=== PATIENT | male | born 1990 | race African-American/Black ===

== ENCOUNTER 2019-10-26 16:44 | Emergency (ER) | payer MEDICAID ==
[~2019-10-26] VITALS: Ht 180.3 cm; Wt 118.0 kg
[2019-10-26 18:54] LABS: CLARITY URINE CLEAR (CLEAR); COLOR URINE YELLOW (YELLOW); KETONES URINE TRACE (NEGATIVE); LEUKOCYTE ESTERASE URINE 1+ (NEGATIVE); NITRITE URINE NEGATIVE (NEGATIVE); OCCULT BLOOD URINE NEGATIVE (NEGATIVE); PH URINE 6.5 (4.5-8.0); PROTEIN URINE NEGATIVE (NEGATIVE); SPECIFIC GRAVITY URINE 1.027 (1.005-1.030)
[2019-10-26] MEDS ORDERED: AZITHROMYCIN 500 MG TABLET PO ONE (19:00)
[2019-10-26] MEDS ORDERED: CEFTRIAXONE SODIUM 250 MG/VIAL IM ONE (19:00)
[2019-10-26 19:09] VITALS: BP 118/87
== END 2019-10-26 19:28 | disposition home or self-care (01) ==
LOC: ER 16:44
DX: A64 Unspecified sexually transmitted disease (principal); J45.909 Unspecified asthma, uncomplicated
CPT/HCPCS: 81003; 96372; 99283; J0696; Z7610

== ENCOUNTER 2019-11-04 11:14 | Emergency (ER) | payer MEDICAID ==
[~2019-11-04] VITALS: Ht 182.9 cm; Wt 117.0 kg
[2019-11-04 11:24] VITALS: BP 150/82
[2019-11-04] MEDS ORDERED: AZITHROMYCIN 500 MG TABLET PO ONE (13:00)
[2019-11-04] MEDS ORDERED: CEFTRIAXONE SODIUM 250 MG/VIAL IM ONE (13:00)
[2019-11-04 13:15] LABS: CLARITY URINE CLEAR (CLEAR); COLOR URINE YELLOW (YELLOW); KETONES URINE NEGATIVE (NEGATIVE); LEUKOCYTE ESTERASE URINE NEGATIVE (NEGATIVE); NITRITE URINE NEGATIVE (NEGATIVE); OCCULT BLOOD URINE NEGATIVE (NEGATIVE); PROTEIN URINE NEGATIVE (NEGATIVE); SPECIFIC GRAVITY URINE 1.026 (1.005-1.030); UROBILINOGEN URINE 0.2 E.U./dL (0.2-1.0)
[2019-11-13 07:53] LABS: CHLAMYDIA TRACHOMATIS NAA Positive (Negative); NEISSERIA GONORRHOEAE NAA Negative (Negative)
== END 2019-11-04 13:50 | disposition left against medical advice (07) ==
LOC: ER 11:24
DX: R30.0 Dysuria (principal); R36.9 Urethral discharge, unspecified; R10.2 Pelvic and perineal pain; R30.9 Painful micturition, unspecified; N50.811 Right testicular pain; J45.909 Unspecified asthma, uncomplicated
CPT/HCPCS: 81003; 87491; 87591; 96372; 99283; J0696

== ENCOUNTER 2019-12-13 16:39 | Emergency (ER) | payer MEDICAID ==
[~2019-12-13] VITALS: Ht 182.9 cm; Wt 116.0 kg
[2019-12-13] MEDS ORDERED: CEFTRIAXONE 1 G PREMIX 50 ML IV ONE (18:45)
[2019-12-13] MEDS ORDERED: AZITHROMYCIN 500 MG TABLET PO ONE (18:45)
[2019-12-13] MEDS ORDERED: CEFTRIAXONE SODIUM 250 MG/VIAL IM ONE (20:00)
[2019-12-13 20:50] VITALS: BP 144/74
== END 2019-12-13 21:25 | disposition home or self-care (01) ==
LOC: ER 16:39
DX: N34.2 Other urethritis (principal); J45.909 Unspecified asthma, uncomplicated
CPT/HCPCS: 96372; 99283; J0696

== ENCOUNTER 2020-12-26 05:58 | Emergency (ER) | payer MEDICAID ==
[~2020-12-26] VITALS: Ht 180.3 cm; Wt 120.0 kg
[2020-12-26 06:07] VITALS: BP 157/91
[2020-12-26] MEDS ORDERED: DOXY100C2 MT (06:29)
[2020-12-26] MEDS ORDERED: DOXYCYCLINE HYCLATE 100MG CAPSULE PO ONE (06:30)
[2020-12-26] MEDS ORDERED: CEFTRIAXONE SODIUM 250 MG/VIAL IM ONE (06:30)
== END 2020-12-26 07:29 | disposition home or self-care (01) ==
LOC: ER 05:58
DX: A64 Unspecified sexually transmitted disease (principal); J45.909 Unspecified asthma, uncomplicated
CPT/HCPCS: 96372; 99283; J0696

== ENCOUNTER 2021-08-18 01:43 | Emergency (ER) | payer MEDICAID ==
[~2021-08-18] VITALS: Ht 180.3 cm; Wt 118.0 kg
[~2021-08-18 01:43] MED LIST: DOXY100C5 MT
[2021-08-18] MEDS ORDERED: CEFTRIAXONE SODIUM 500 MG/VIAL IM ONE (03:00)
[2021-08-18] MEDS ORDERED: DOXYCYCLINE HYCLATE 100MG CAPSULE PO ONE (03:00)
[2021-08-18] MEDS ORDERED: DOXY-326 MT (03:01)
[2021-08-18 04:02] VITALS: BP 121/84
[2021-08-18] MEDS ORDERED: FENTANYL CITRATE/PF 50MCG/ML 2ML VIAL ONE (08:37)
[2021-08-18] MEDS ORDERED: MIDAZOLAM HCL 2 MG/2 ML VIAL ONE (08:37)
[2021-08-18] MEDS ORDERED: ROCURONIUM BROMIDE 10MG/ML VIAL 5ML IV ONE ×2 (08:37→10:28)
[2021-08-18] MEDS ORDERED: PROPOFOL 200MG/20ML VIAL IV ONE (08:37)
[2021-08-18] MEDS ORDERED: HYDROMORPHONE HCL/PF 2MG/ML (OR) ONE (10:54)
[2021-08-20 04:12] LABS: NEISSERIA GONORRHOEAE NAA Negative (Negative)
== END 2021-08-18 04:02 | disposition home or self-care (01) ==
LOC: ER 01:43
DX: R30.0 Dysuria (principal); J45.909 Unspecified asthma, uncomplicated
CPT/HCPCS: 87491; 87591; 96372; 99283; J0696; J1170; J2250; J2704; J3010; J3490

== ENCOUNTER 2021-09-08 23:13 | Emergency (ER) | payer MEDICAID ==
[~2021-09-08] VITALS: Ht 180.3 cm; Wt 120.0 kg
[~2021-09-08 23:13] MED LIST changes: +DOXY-326 MT
[2021-09-09] MEDS ORDERED: IBUPROFEN 600MG TABLET PO STA (00:13)
[2021-09-09 01:37] LABS: CLARITY URINE CLEAR (CLEAR); COLOR URINE YELLOW (YELLOW); KETONES URINE TRACE (NEGATIVE); LEUKOCYTE ESTERASE URINE NEGATIVE (NEGATIVE); NITRITE URINE NEGATIVE (NEGATIVE); OCCULT BLOOD URINE NEGATIVE (NEGATIVE); PROTEIN URINE NEGATIVE (NEGATIVE); SPECIFIC GRAVITY URINE 1.024 (1.005-1.030)
[2021-09-09 01:48] VITALS: BP 138/89
[2021-09-09] MEDS ORDERED: NAPR-681 PO (01:59)
== END 2021-09-09 02:11 | disposition home or self-care (01) ==
LOC: ER 23:13
DX: M54.50 Low back pain, unspecified (principal); J45.909 Unspecified asthma, uncomplicated
CPT/HCPCS: 81003; 99283

== ENCOUNTER 2022-02-15 15:10 | Emergency (ER) | payer MEDICAID, OTHER ==
[~2022-02-15] VITALS: Ht 180.3 cm; Wt 127.0 kg
[~2022-02-15 15:10] MED LIST changes: +ALBU05 NEB; +ALBU6.7H9 INH; +BENZ-16 MT; +NAPR-681 PO; +P50 MT
[2022-02-15 15:15] VITALS: BP 150/88
[2022-02-15] MEDS ORDERED: LIDOCAINE HCL 1% 20ML VIAL (Pyxis) INJ INFIL ONE (16:15)
[2022-02-15] MEDS ORDERED: CEFTRIAXONE SODIUM 1 G/VIAL IM ONE (16:15)
[2022-02-15] MEDS ORDERED: DOXY100C5 MT (16:35)
[2022-02-15 16:36] LABS: CLARITY URINE CLEAR (CLEAR); COLOR URINE YELLOW (YELLOW); KETONES URINE TRACE (NEGATIVE); LEUKOCYTE ESTERASE URINE NEGATIVE (NEGATIVE); NITRITE URINE NEGATIVE (NEGATIVE); OCCULT BLOOD URINE NEGATIVE (NEGATIVE); PH URINE 6.5 (4.5-8.0); PROTEIN URINE NEGATIVE (NEGATIVE); SPECIFIC GRAVITY URINE 1.024 (1.005-1.030); UROBILINOGEN URINE 0.2 E.U./dL (0.2-1.0)
[2022-02-19 04:08] LABS: NEISSERIA GONORRHOEAE NAA Negative (Negative)
== END 2022-02-15 16:59 | disposition home or self-care (01) ==
LOC: ER 15:10
DX: N34.2 Other urethritis (principal); Z20.2 Contact with and (suspected) exposure to infections with a predominantly sexual mode of transmission
CPT/HCPCS: 81003; 87491; 87591; 96372; 99283; J0696; J3490

== ENCOUNTER 2022-12-27 22:27 | Emergency (ER) | payer MEDICAID ==
[~2022-12-27] VITALS: Ht 180.3 cm; Wt 143.3 kg
[~2022-12-27 22:27] MED LIST changes: +ALBU6.7H3 INH; -ALBU6.7H9 INH
[2022-12-27 22:56] VITALS: BP 166/99
[2022-12-28] MEDS ORDERED: CEFTRIAXONE SODIUM 500 MG/VIAL IM ONE (01:15)
[2022-12-28] MEDS ORDERED: DOXY100T2 PO (01:58)
[2022-12-28 02:48] LABS: CLARITY URINE CLEAR (CLEAR); COLOR URINE DARK YELLOW (YELLOW); KETONES URINE TRACE (NEGATIVE); LEUKOCYTE ESTERASE URINE NEGATIVE (NEGATIVE); NITRITE URINE NEGATIVE (NEGATIVE); OCCULT BLOOD URINE NEGATIVE (NEGATIVE); PH URINE 5.5 (4.5-8.0); PROTEIN URINE TRACE (NEGATIVE); SPECIFIC GRAVITY URINE 1.029 (1.005-1.030)
== END 2022-12-28 02:20 | disposition home or self-care (01) ==
LOC: ER 22:27
DX: R30.0 Dysuria (principal); A54.9 Gonococcal infection, unspecified; A74.9 Chlamydial infection, unspecified; Z79.899 Other long term (current) drug therapy
CPT/HCPCS: 81003; 96372; 99283; J0696